=== PATIENT | male | born 1985 | race Caucasian/White ===

== ENCOUNTER 2019-09-17 19:42 | Inpatient (IN) | payer OTHER ==
[2019-09-17 20:20] VITALS: BMI 24.7
[2019-09-17] MEDS ORDERED: MELATONIN 5 MG TABLETS PO PRN (22:00)
--- NOTE | 2019-09-17 22:34 | HP ---
CIWA Score - Admission Criteria OASAS Guidelines: Admission for Medically Managed Detox: Requires at least one of the followin. CIWA greater than 12 2. Seizures within the past 24 hours 3. Delirium tremens within the past 24 hours 4. Hallucinations within the past 24 hours 5. Acute intervention needed for co occurring medical disorder 6. Acute intervention needed for co occurring psychiatric disorder 7. Severe withdrawal that cannot be handled at a lower level of care (continued vomiting, continued diarrhea, abnormal vital signs) requiring intravenous medication and/or fluids 8. Admission ROS BHS - HPI Chief Complaint: Seeking admission to Rehab. Allergies/Adverse Reactions: Allergies Allergy/AdvReac Type Severity Reaction Status Date / Time No Known Allergies Allergy Verified 09/17/19 20:20 History of Present Illness: 34 years old male with a history of crystal meth. dependence is seeking admission to Rehab. He reports that he has been using crystal meth. for 10 years. He reports that he had been in Rehab. 3 times at [place], [place]. This is his first admission to [facility]. He denies medical history and reports psych. history of anxiety and depression. He denies suicidal ideation at this time Exam Limitations: No Limitations - Ebola screening Have you traveled outside of the country in the last 21 days: No (N) Have you had contact with anyone from an Ebola affected area: No Do you have a fever: No - Review of Systems Constitutional: No Symptoms Reported EENT: reports: No Symptoms Reported Respiratory: reports: No Symptoms reported Cardiac: reports: No Symptoms Reported GI: reports: No Symptoms Reported : reports: No Symptoms Reported Musculoskeletal: reports: No Symptoms Reported Integumentary: reports: No Symptoms Reported Neuro: reports: No Symptoms reported Endocrine: reports: No Symptoms Reported Hematology: reports: No Symptoms Reported Psychiatric: reports: No Sypmtoms Reported, Mood/Affect Appropiate Other Systems: Reviewed and Negative Patient History - Patient Surgical History Past Surgical History: No - PPD History Previous Implant?: Yes Documented Results: Negative w/o proof Implanted On Prior [facility] Admission?: No PPD to be Administered?: Yes - Reproductive History Patient is a Female of Child Bearing Age (11 -55 yrs old): No (Male) - Smoking Cessation Smoking history: Former smoker Have you smoked in the past 12 months: No Hx Chewing Tobacco Use: No Initiated information on smoking cessation: No - Substance & Tx. History Hx Alcohol Use: No Hx Substance Use: Yes Substance Use Type: Tranquilizers Hx Substance Use Treatment: Yes ([place], [place]) - Substances abused Crystal meth Substance route: Smoking Amount used: 1 gram Age of first use: 24 Date of last use: 09/15/19 Admission Physical Exam [facility] - Vital Signs Vital Signs: Vital Signs - 24 hr 09/17/19 20:03 Temperature 98.6 F Pulse Rate 70 Respiratory 18 Rate Blood Pressure 122/69 - Physical General Appearance: Yes: Within Normal Limits, No Apparent Distress, Appropriately Dressed HEENTM: Yes: Within Normal Limits, EOMI, Normal ENT Inspection, Normocephalic, Normal Voice, CASSIDY Respiratory: Yes: Lungs Clear, Normal Breath Sounds, No Respiratory Distress Neck: Yes: Supple Breast: Yes: Breast Exam Deferred Cardiology: Yes: Regular Rhythm, Regular Rate Abdominal: Yes: Normal Bowel Sounds Back: Yes: Normal Inspection Extremities: Yes: Normal Inspection Neurological: Yes: Within Normal Limits, Fully Oriented, Alert, Normal Mood/ Affect Integumentary: Yes: Within Normal Limits Lymphatic: Yes: Within Normal Limits - Diagnostic (1) Methamphetamine abuse Current Visit: Yes Status: Chronic (2) Depression Current Visit: Yes Status: Chronic (3) Anxiety Current Visit: Yes Status: Chronic Cleared for Admission [facility] - Detox or Rehab [facility] Level of Care: Observation Bed Claeared for Rehab Admission: Yes Breathalyzer - Breathalyzer Breathalyzer: 0 Urine Drug Screen - Test Device Lot number: [id number] Expiration date: 05/01/21 - Control Is test valid?: Yes - Results Drug screen NEGATIVE: No Inpatient Rehab Admission - Rehab Decision to Admit Inpatient rehab admission?: Yes - Initial Determination Are CD services needed?: No Free of communicable disease: Yes Not in need of hospitalization: Yes - Rehab Admission Criteria Previous failed treatment: Yes Poor recovery environment: Yes Comorbidities: Yes Lacks judgement: No Patient is meeting Inpatient Rehab admission criteria:: Yes
[2019-09-17] MEDS ORDERED: MAGNESIUM CITRATE 300 ML BOTTLE PO PRN (22:42)
[2019-09-17] MEDS ORDERED: guaiFENesin 200 MG/10 ML 10 ML UNIT-DOSE CUPS PO PRN (22:42)
[2019-09-17] MEDS ORDERED: ACETAMINOPHEN 325 MG TABLET (FP) PO PRN (22:42)
[2019-09-17] MEDS ORDERED: MAGNESIUM HYDROX 2400MG/30ML ORAL SUSPENSION 30 ML CUP PO PRN (22:42)
[2019-09-17] MEDS ORDERED: MENTHOL/PHENOL 1 EACH UD MM PRN (22:42)
[2019-09-17] MEDS ORDERED: P-EPHED 60MG/TRIPROLIDI 2.5MG TABLET PO PRN (22:42)
[2019-09-17] MEDS ORDERED: LOPERAMIDE HCL 2 MG CAPSULE PO PRN (22:42)
[2019-09-17] MEDS ORDERED: TUBERCULIN PPD 5 TU/0.1ML VIAL ID ONE (23:49)
--- NOTE | 2019-09-18 08:16 | CONSULT ---
[facility] Psychiatric Consult - Data Date of interview: 09/18/19 Admission source: [employer] [place] Identifying data: Mr Bacon is a 34 years old single male, unemployed receiving food stamp, homeless admitted to [facility] on 09/17/19 for rehab treatment for methamphetamine Substance Abuse History: Reports history of crystal meth use. Refer to addiction counselor's summary for further information Medical History: Unremarkable Psychiatric History: Patient reports that he has been anxiety ridden since he was a child and after he started using crystal meth, he became extremely anxious to the point of feeling paranoid. As consequence of this paranoia, he stayed confined in his family home for 4 years from 2010 to 2014 when an argument with family members triggered suicidal feelings with intent of jumping off the roof. So, he went on the roof of the building with the intention to jump where he was observed by neighbors who called 911. [place] intervened and he was brought to [facility] for psychiatric evaluation and admission. He said that he was diagnosed with Anxiety and started on Lexapro. He was discharged after 2 weeks and referred to inpatient rehab for 3 weeks then to outpatient rehab at [facility] where he stayed couple of months before relapsing. He said that he was continued on Lexapro while at both settings. From March 2019 to June 2019, he was admitted to [facility] for residential treatment. There, he met the staff psychiatrist and after a discussion, they both decided that he did not need to take Lexapro any longer. He told ad writer that he has been off medication since and does not want to resume taking it during this current admission. At present , denies experiencing anxiety symptoms, S/H ideations Physical/Sexual Abuse/Trauma History: Denies history of emotional, physical or sexualabuse as well as DV relationship Additional Comment: Denies legal issues Mental Status Exam - Mental Status Exam Alert and Oriented to: Time, Place, Person Cognitive Function: Fair Patient Appearance: Well Groomed Mood: Hopeful, Euthymic Patient Behavior: Cooperative Speech Pattern: Clear Voice Loudness: Normal Thought Process: Intact, Goal Oriented Thought Disorder: Not Present Hallucinations: Denies Suicidal Ideation: Denies Homicidal Ideation: Denies Insight/Judgement: Fair Sleep: Well Appetite: Good Muscle strength/Tone: Normal Gait/Station: Normal Psychiatric Findings - Problem List ([place] 1, 2,3) (1) Anxiety disorder Current Visit: Yes Status: Chronic (2) Substance-induced anxiety disorder Current Visit: Yes Status: Ruled-out (3) Methamphetamine dependence Current Visit: Yes Status: Acute - Initial Treatment Plan Initial Treatment Plan: Continue inpatient rehabilitation
[2019-09-18 09:57] LABS: URINE APPEARANCE TURBID; URINE BILIRUBIN NEGATIVE (NEGATIVE); URINE COLOR YELLOW; URINE GLUCOSE (UA) NEGATIVE (NEGATIVE); URINE KETONE NEGATIVE (NEGATIVE); URINE LEUK ESTERASE NEGATIVE (NEGATIVE); URINE NITRITE NEGATIVE (NEGATIVE); URINE PROTEIN NEGATIVE (NEGATIVE)
[2019-09-18] MEDS: PRENATAL VITAMINS W/ FOLIC ACID TABLET (FP) PO SCH (11:23)
[2019-09-18 13:00] LABS: HEMATOCRIT 41.2 % (35.4-49); HEMOGLOBIN 13.8 GM/dL (11.7-16.9); MCHC 33.4 g/dl (32.0-35.9); MEAN CELL VOLUME 92.8 fl (80-96); MEAN PLT VOLUME 10.4 fl (7.5-11.1); PLATELET COUNT 134 K/MM3 (134-434); RBC 4.44 M/mm3 (4.00-5.60); RDW 13.6 % (11.9-15.9); WHITE BLOOD COUNT 7.7 K/mm3 (4.0-10.0)
[2019-09-18 13:08] LABS: ALBUMIN 3.8 g/dl (3.4-5.0); BILIRUBIN,TOTAL 0.6 mg/dL (0.2-1); BLOOD UREA NITROGEN 14.7 mg/dL (7-18); CALCIUM 9.2 mg/dL (8.5-10.1); CREATININE 0.9 mg/dL (0.55-1.3); POTASSIUM 4.2 mmol/L (3.5-5.1)
[2019-09-18] MEDS: THIAMINE HCL 100 MG TABLET (FP) PO SCH (21:54)
--- NOTE | 2019-09-18 22:18 | EKG ---
Test Reason : Blood Pressure : / mmHG Vent. Rate : 057 BPM Atrial Rate : 057 BPM P-R Int : 152 ms QRS Dur : 106 ms QT Int : 434 ms P-R-T Axes : 040 044 034 degrees QTc Int : 422 ms SINUS BRADYCARDIA OTHERWISE NORMAL ECG NO PREVIOUS ECGS AVAILABLE Confirmed by MD JOANN, DANIEL ([id number]) on 09/18/2019 10:18:26 PM Referred By: Confirmed By:DANIEL DAVID MD
[2019-09-19] MEDS: PRENATAL VITAMINS W/ FOLIC ACID TABLET (FP) PO SCH (09:52)
[2019-09-19] MEDS: THIAMINE HCL 100 MG TABLET (FP) PO SCH (21:23)
[2019-09-20] MEDS: PRENATAL VITAMINS W/ FOLIC ACID TABLET (FP) PO SCH (10:55)
[2019-09-20] MEDS: THIAMINE HCL 100 MG TABLET (FP) PO SCH (22:10)
[2019-09-21] MEDS: PRENATAL VITAMINS W/ FOLIC ACID TABLET (FP) PO SCH (10:22)
[2019-09-21] MEDS: THIAMINE HCL 100 MG TABLET (FP) PO SCH (22:13)
--- NOTE | 2019-09-22 10:26 | PN ---
S Progress Note (SOAP) Subjective: Nurse Melodie Mao reported to ad writer that this patient wants to see the psychiatrist because wants to start back on his medications. Asked patient what medications he takes and he responded Lexapro, Lamictal and Effexor. Pt was seen by Dr. Vo on 09/18/19 and on review of psych consult notes pt reported he was not on medication. On speaking with patient, he stated that he wants to start his medications and currently stated "I'm fantasizing suicide". Asked pt if any plan of execution and he stated "Just thinking about it like jumping off [employer], [facility], jumping off my mom's building in [place]". Pt denies homocidal ideations and stated "not hurting other people but hurting myself,humiliating myself in public ". Pt reports being depressed at the moment and says he did not want to talk about all these on the day he say the psych doctor(09/18/19). Pt was admitted to rehab on 09/17/19 with a hx of crystal Meth use disorder and hx anxiety/Depression. Pt has had multiple CD treatment episodes in the past. pt is not known to this facility. This is patient's first time here. Objective: 09/22/19 10:38 Vital Signs - 24 hr 09/22/19 09/22/19 09/22/19 00:30 03:30 06:41 Temperature 97.8 F Pulse Rate 68 Respiratory 18 18 18 Rate Blood Pressure 117/70 Laboratory Tests 09/18/19 09/18/19 09/18/19 08:15 09:00 09:00 WBC 7.7 RBC 4.44 Hgb 13.8 Hct 41.2 MCV 92.8 MCH 31.0 MCHC 33.4 RDW 13.6 Plt Count 134 MPV 10.4 Sodium 144 Potassium 4.2 Chloride 107 Carbon Dioxide 32 Anion Gap 6 L BUN 14.7 Creatinine 0.9 Est GFR (CKD-EPI)AfAm 127.80 Est GFR (CKD-EPI)NonAf 110.27 Random Glucose 76 Calcium 9.2 Total Bilirubin 0.6 AST 27 ALT 35 Alkaline Phosphatase 69 Total Protein 7.0 Albumin 3.8 Urine Color Yellow Urine Appearance Turbid Urine pH 6.0 Ur Specific [place] 1.029 Urine Protein Negative Urine Glucose (UA) Negative Urine Ketones Negative Urine Blood Negative Urine Nitrite Negative Urine Bilirubin Negative Urine Urobilinogen 1.0 Ur Leukocyte Esterase Negative RPR Titer 09/18/19 09:00 WBC RBC Hgb Hct MCV MCH MCHC RDW Plt Count MPV Sodium Potassium Chloride Carbon Dioxide Anion Gap BUN Creatinine Est GFR (CKD-EPI)AfAm Est GFR (CKD-EPI)NonAf Random Glucose Calcium Total Bilirubin AST ALT Alkaline Phosphatase Total Protein Albumin Urine Color Urine Appearance Urine pH Ur Specific [place] Urine Protein Urine Glucose (UA) Urine Ketones Urine Blood Urine Nitrite Urine Bilirubin Urine Urobilinogen Ur Leukocyte Esterase RPR Titer Nonreactive Admission labs wnl Assessment: 09/22/19 10:40 Suicidal ideation Hx Depression/Anxiety(no meds) Plan: Patient on 1:1 with staff for safety until evaluated by psychiatrist Psych consult ordered now and call placed to Dr. Vo.
[2019-09-22] MEDS: PRENATAL VITAMINS W/ FOLIC ACID TABLET (FP) PO SCH (10:45)
--- NOTE | 2019-09-22 12:10 | CONSULT ---
[facility] Psychiatric Consult - Data Date of interview: 09/22/19 Admission source: [facility] Identifying data: Day 5 of rehabilitation. Case of a 34 y/o male who sought rehabilitative care at [address] to address methamphetamine dependence co-morbid with Mood Disorder. Patient indicates that he has been diagnosed with bipolar depression and panic disorder with agoraphobia. Mr Bacon is single, no dependents, currently homeless (lost family support), unemployed for past eight years although being skilled ( college graduate in graphics design) and currently deprived of financial assistance. Psychiatric re-consult is sought today in response to this patient' s verbalization of suicidal tendencies. Substance Abuse History: Discussed in this session. Details as follows : Smoking history: Former smoker. Have you smoked in the past 12 months: No. Hx Chewing Tobacco Use: No. Initiated information on smoking cessation: No. - Substance & Tx. History. Hx Alcohol Use: No. Hx Substance Use: Yes. Substance Use Type: Tranquilizers. Hx Substance Use Treatment: Yes ([place], [place]). - Substances abused. Crystal meth. Substance route: Smoking. Amount used: 1 gram. Age of first use: 24. Date of last use: 09/15/19 Medical History: Patient endorses good general health. Psychiatric History: Refer to attending psychiatrist's note of 09/18/19. Imported note : " Patient reports that he has been anxiety ridden since he was a child and after he started using crystal meth, he became extremely anxious to the point of feeling paranoid. As consequence of this paranoia, he stayed confined in his family home for 4 years from 2010 to 2014 when an argument with family members triggered suicidal feelings with intent of jumping off the roof. So, he went on the roof of the building with the intention to jump where he was observed by neighbors who called 911. [place] intervened and he was brought to [facility] for psychiatric evaluation and admission. He said that he was diagnosed with Anxiety and started on Lexapro. He was discharged after 2 weeks and referred to inpatient rehab for 3 weeks then to outpatient rehab at [facility] where he stayed couple of months before relapsing. He said that he was continued on Lexapro while at both settings. From March 2019 to June 2019, he was admitted to [facility] for residential treatment. There, he met the staff psychiatrist and after a discussion, they both decided that he did not need to take Lexapro any longer. He told telegraphic typewriter repairer that he has been off medication since and does not want to resume taking it during this current admission." End of note. Physical/Sexual Abuse/Trauma History: Patient declines to discuss this domain. Additional Comment: Drug screen NEGATIVE: No. Mental Status Exam - Mental Status Exam Alert and Oriented to: Time, Place, Person Cognitive Function: Good Patient Appearance: Well Groomed Mood: Depressed, Sad, Withdrawn (hopeless), Anxious Affect: Constricted Patient Behavior: Passive ([id number]), Talkative, Cooperative Speech Pattern: Clear Voice Loudness: Normal Thought Process: Goal Oriented Thought Disorder: Ideas of Reference (recent experience of receiving messages from TV accusing him of crimes and urging him to give himself up to [place]), Bizarre (patient admits to obsessive thoughts about posting on the net images of himself in compromising sexual postures) Hallucinations: Denies Suicidal Ideation: Current (patient declares that he is " tired of living this life " and that he is focusing on getting the strength to commit suicide) Homicidal Ideation: Denies Insight/Judgement: Poor, Impaired Sleep: Well Appetite: Good Gait/Station: Normal Psychiatric Findings - Problem List ([place] 1, 2,3) (1) At high risk for suicide Status: Acute Comment: Depressed, invested in suicidal ruminations, lack of future-orientedness, previous suicide attempts, loneliness, dilapidated self- esteem, addiction to methamphetamine, loneliness, withdrawal of family support, homelessness, hopelessness, poor adherence to psychiatric treatment and sporadic paranoia. (2) Methamphetamine abuse Status: Chronic (3) Anxiety disorder Status: Chronic (4) History of bipolar disorder Status: Chronic (5) Non-compliance Status: Chronic - Initial Treatment Plan Initial Treatment Plan: Patient is maintained under Constant Observation ( acute care nursing assistant, Joni Choudhury, in attendance). Conversion to 2 status. Mr Bacon is a high risk for suicide. He needs a higher level of psychiatric care. It is imperative that he be transferred to a psychiatric institution. Calls made to [facility] ([phone]) : no response. Transfer pending.
[2019-09-22] MEDS: MAG HYDROX/AL HYDROX/SIMETH 30 ML UNIT-DOSE CUP PO PRN (17:58)
[2019-09-22] MEDS: IBUPROFEN 400 MG TABLET (FP) PO PRN (18:51)
[2019-09-22] MEDS: THIAMINE HCL 100 MG TABLET (FP) PO SCH (21:44)
[2019-09-23] MEDS: PRENATAL VITAMINS W/ FOLIC ACID TABLET (FP) PO SCH (10:25)
--- NOTE | 2019-09-23 11:44 | PN ---
[facility] Progress Note Note: Pt in room and safety maintained on 1:1 with staff in room. Pt was seen in bed this morning with no acute distress or complaints. Pt has afia seen by psychiatric team(see psych notes). Psychiatric team recommendation and plans been awaited. discussed pt's status with Biofuels Manager, Marine Dumont who will also follow up on patient's status plan of treatment. Vital Signs - 24 hr 09/23/19 09/23/19 09/23/19 00:30 03:30 07:23 Temperature 97.7 F Pulse Rate 71 Respiratory 18 18 18 Rate Blood Pressure 107/61 A/P Pt with Suicidal fantacy Maintain safety on 1:1. Follow up with psych recommendations.
[2019-09-23] MEDS: IBUPROFEN 400 MG TABLET (FP) PO PRN (12:12)
[2019-09-23] MEDS: MAG HYDROX/AL HYDROX/SIMETH 30 ML UNIT-DOSE CUP PO PRN (17:22)
--- NOTE | 2019-09-23 17:37 | PN ---
[facility] Progress Note Note: Psychiatry Attending's note : Multiple institutions were contacted for beds. [facility], [facility], [facility], [facility], [facility], [facility]. NO BEDS available. [facility], [facility], [facility] : CALLS went unanswered. [facility] expressed interest. Documentation (H+P, labs, psychiatric reports) faxed, upon request, to these facilities. No response from [facility]. [place] [facility] responded around 4:45 pm : admission rejected. Reason offered : patient's profile of chronic non-adherence to medications + OPD care. In the meantime, the patient is still maintained under suicide watch (constant observation). Now in full denial of symptoms. Mr Bacon is clearly manipulative. Minimizing seriousness of complaints. Argumentative. Patient claims that psychiatrists have " exaggerated " his issues and " misunderstood " his words. 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 Co-morbid with with mood dysregulation, impulse control issues and potential for unpredictable + self-destructive behavior. Mr Bacon cannot be trusted for safety. Multiple telephone contacts (Dr Espinoza, RN Marlin Pugh) with ED staff at [facility] at [phone]. At 5:35 pm, this functional tester typewriters spoke to the charge nurse in the emergency department ( psychiatric section). No psychiatrists available. Advised to call in " another hour " for endorsement to psychiatrist on-call. 6:55 pm : Contact established with psychiatrist on-call, Dr Arellano, at [facility] (psychiatric section of ED). Case discussed. History revisited. Dr Arellano ([phone]) is made aware of this patient's profile and the need for vigilance (constant observation). Case accepted. Documentation (H+P, labs, EKG, psychiatric reports, 2 PC papers) to follow patient. 911 to be activated (EMS/[facility] escort). Discussed with nurse on duty at [address] 7:15 pm : Came to [address] Met again with patient. Disposition discussed in detail : . psychiatric evaluation at [facility] (ED). . if psychiatrically cleared, issue resolved (patient can return to [facility] if he wishes). . if admitted, crisis averted. . in the meantime, bed on hold at [facility] (pending outcome). . patient verbalizes his agreement with this plan of care. . no opposition offered. . accepting psychiatrist, Dr Arellano, agrees with this intervention.
[2019-09-23 19:44] VITALS: BP 126/80; PULSE 66; TEMP 97.8
[2019-09-23] MEDS: THIAMINE HCL 100 MG TABLET (FP) PO SCH (21:42)
== END 2019-09-24 01:05 | DRG 772 ==
LOC: YASAS 19:42 → Y5N 23:00
PROVIDERS: ADMIT Neuromusculoskeletal Medicine & OMM; ATTEND Neuromusculoskeletal Medicine & OMM
PROC: HZ42ZZZ Group Counseling for Substance Abuse Treatment, Cognitive-Behavioral (ICD-10-PCS; principal; 2019-09-17)
DX: F15.20 Other stimulant dependence, uncomplicated (principal); F19.280 Other psychoactive substance dependence with psychoactive substance-induced anxiety disorder; F41.9 Anxiety disorder, unspecified; F32.9 Major depressive disorder, single episode, unspecified; R45.851 Suicidal ideations; Z87.891 Personal history of nicotine dependence; Z91.14 Patient's other noncompliance with medication regimen
CPT/HCPCS: 36415; 80053; 81003; 85027; 86593; 93005; 93010